=== PATIENT | female | born 2000 | race Hispanic/Latino ===

== ENCOUNTER 2020-07-25 15:10 | Outpatient (CLI) | payer OTHER, SELFPAY ==
--- NOTE | 2020-07-25 16:03 | PM.OBTRLD ---
Visit Information Visit Information Date of evaluation: 07/25/20 On-call OB Provider: Andrea Pandey Comments/Additional reasons for admission: G1 para 0 24 weeks 2 days gestational age received her care at [facility] no physician locally working in the emergency department came in because of concerns about decreased movement. No bleeding no spotting no leakage of fluid. Patient was placed on the monitor in the center. Category 1 tracing for 24 weeks. Blood pressure stable otherwise doing well provided reassurance and provided recommendations to follow up with her primary care OB physician
== END 2020-07-25 16:07 | disposition home or self-care (01) ==
LOC: LABOR 15:16 → OB 07-26 07:05
PROVIDERS: Referring Provider Family Medicine; Visit Provider Family Medicine
DX: O36.8120 Decreased fetal movements, second trimester, not applicable or unspecified (principal); Z3A.24 24 weeks gestation of pregnancy
CPT/HCPCS: 59025; G0378; G0379